=== PATIENT | male | born 1935 | race Caucasian/White ===

== ENCOUNTER → 2020-12-06 10:28 | Outpatient (CLI) | payer MEDICARE, OTHER, SELFPAY ==
--- NOTE | 2020-12-06 10:36 | VDLE_ITS ---
Reason For Study: Pain RIGHT LEFT CFV is compressible, spontaneous, phasic, GSV is normal. competent and demonstrates normal CFV is compressible, spontaneous, phasic, augmentation. competent, and demonstrates normal Procedure augmentation. This is a venous duplex using B-mode, color FV is compressible, spontaneous, phasic, flow and spectral Doppler. competent and demonstrates normal Exam performed in department. augmentation. A preliminary report was called and/or faxed POP V is compressible, spontaneous, phasic, to Manjeet. competent and demonstrates normal augmentation. T/P Trunk is compressible. PTV is compressible. LT PerV is compressible. VL/Venous Duplex US, Unilateral Interpretation Summary Deep veins of the left lower extremity are patent and compressible segmentally. There is no evidence of left lower extremity deep vein thrombosis. Valvular competence appears intac t within the proximal deep venous system on the left . The left great saphenous vein appears patent a nd compressible segmentally. Ordering Physician: Neri Burruoghs Referring Physician: Liliana Brunson Performed By: Jennifer Banks RVT
== END ==
PROVIDERS: PCP Family Medicine; Referring Provider Family Medicine; Visit Provider Family Medicine
DX: R60.0 Localized edema (principal)
CPT/HCPCS: 93971

== ENCOUNTER → 2020-12-08 | Outpatient (CLI) | payer MEDICARE, OTHER, SELFPAY ==
--- NOTE | 2020-12-08 | LES_PTH ---
PATIENT: ANNA HARRY LOC: [facility] U#:[id number] AGE/SX: 85/M ROOM: RE12/08/[address]: Dr. Vaughn Stanley MD : [id number] BED: DIS: 12/08/2020 SPEC #: [id number] RECD: 12/08/20 15:00 STATUS: GUNNER REVicki #: [id number] FINN: 12/08/20 00:[address]: Vaughn Stanley DEPT: SURGICAL PATHOLOGY RECD BY: Vianca De Leon ENTERED: 12/09/20 13:55 SP TYPE: Lesion OTHR DR: Dr. 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 See comment. AM:donna 12/12/2020 COMMENT The lesion appears to have been completely excised in the planes examined. Case has been reviewed in consultation with Dr. Real who concurs with the above diagnosis. IDC:[id number] MICROSCOPIC DESCRIPTION Slides are reviewed. GROSS DESCRIPTION Received in fixative is one container labeled with the patient's name and designated excision lesion left ear. The specimen consists of an ellipse of light salazar excised skin measuring 1.5 x 0.7 x 0.4 cm. The specimen is inked, serially sectioned and totally submitted in one cassette. / AM:donna 12/09/20 TC:0 CPT: 03698
== END | disposition home or self-care (01) ==
PROVIDERS: PCP Family Medicine; Referring Provider Otolaryngology; Visit Provider Otolaryngology
DX: C44.219 Basal cell carcinoma of skin of left ear and external auricular canal (principal)
CPT/HCPCS: 88305

== ENCOUNTER → 2020-12-22 12:31 | Outpatient (CLI) | payer MEDICARE, OTHER, SELFPAY ==
--- NOTE | 2020-12-22 12:34 | ART_ITS ---
Reason For Study: weak pulses, decreased pulses Procedure A bilateral lower extremity continuous wave Doppler with analog waveform analysis,segmental pressures,and ankle brachial indexes without exercise. Left Segmental Pressures Left brachial= 150mmHg. Left digit = 120 mmHg. PT and DP are noncompressible. The left dorsalis pedis waveforms are triphasic. The left posterior tibial artery waveforms are triphasic. Right Segmental Pressures Right brachial= 143mmHg. Right digit = 102 mmHg. PT and DP are noncompressible. The right dorsalis pedis waveforms are triphasic. The right posterior tibial artery waveforms are triphasic. Indices The right digital-brachial index is .68. The left digital-brachial index is .8. VL/Lower Ext Art Exam w/o Exercis Interpretation Summary Triphasic Doppler waveforms are noted at ankle level bilaterally. Pulse-volume recordings appear satisfactory at all levels bilaterally, including low thigh, calf, ankle, and d igital levels. Resting ankle-brachial indices could not be determined bilaterally due to the n on-compressibility of the vasculature. The right digital-brachial index is mildly diminished. The lef t digital-brachial index is normal. There is evidence of arterial calcification at ankle level bilaterally. Arteria l flow appears normal at ankle level bilaterally, and at digital level on the left. 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 Ordering Physician: Charlie Loza Performed By: Gil Kimball RVT
== END ==
PROVIDERS: PCP Family Medicine; Referring Provider Student in an Organized Health Care Education/Training Program; Visit Provider Student in an Organized Health Care Education/Training Program
DX: R09.89 Other specified symptoms and signs involving the circulatory and respiratory systems (principal)
CPT/HCPCS: 93923